=== PATIENT | male | born 1980 | race Caucasian/White ===

== ENCOUNTER 2021-01-02 15:17 | Emergency (ER) | payer BC, SELFPAY ==
[2021-01-02 15:45] VITALS: BP 127/87; PULSE 78; RESP 18; TEMP 36.4; O2SAT 98
--- NOTE | 2021-01-02 16:04 | ED.EAR ---
HPI - Ear Problem General Chief complaint: Ear Stated complaint: Bilateral ear pain Source: patient and RN notes reviewed Limitations: no limitations History of Present Illness HPI Narrative: The unvaccinated patient, is here with his sick family members , also presents with ear discomfort. Patient states he has mostly right ear discomfort associate with occasional nasal discharge. No fever, discharge, swelling, sore throat, earache, referred toothache pain, bruxism/teeth grinding, neuralgic pain, swelling/lymphadenopathy. Symptoms are mild to minimal and only slightly worse with palpation Related Data Home Medications Medication Instructions Recorded Confirmed atorvastatin 20 mg PO DAILY 01/02/21 01/02/21 metoprolol succinate 200 mg PO DAILY 01/02/21 01/02/21 omeprazole 20 mg PO DAILY 01/02/21 01/02/21 Allergies Allergy/AdvReac Type Severity Reaction Status Date / Time No Known Allergies Allergy Verified 01/02/21 15:24 Review of Systems Review of Systems: General/Constitutional: No weight loss,fever Eyes: N0: Redness,discharge Ears/Nose/Throat: No: Epistaxis,ear discharge Respiratory: Denies: Hemoptysis Skin: No Lumps, eruption Neurologic: No Focal Weakness,Sz Hematologic: Denies: Petechiae/Purpura PMFSH Social History Social History Gender identity (if verbalized by the patient): Male Comments At time of signature, agree with nursing past medical, surgical, social and family history. There is no relevant family history pertinent to the presenting complaint Exam Narrative: General Appearance: Well appearing, normal conjunctiva, EOMI Ears: Bilateral TMs normal, only slightly flushed/erythematous right auditory canal Nose: Normal nose, Nares clear Mouth/Throat: Normal appearing, Normal lips,supple, No adenopathy Respiratory: Airway patent, No respiratory distress Skin: Warm, Dry Neurological: A&O x3, Normal affect Course Vital Signs Vital signs: Vital Signs Temperature 97.5 F L 01/02/21 15:45 Pulse Rate 78 01/02/21 15:45 Respiratory Rate 18 01/02/21 15:45 Blood Pressure 127/87 01/02/21 15:45 Pulse Oximetry 98 01/02/21 15:45 Temperature 97.5 F L 01/02/21 15:45 Pulse Rate 78 01/02/21 15:45 Respiratory Rate 18 01/02/21 15:45 Blood Pressure 127/87 01/02/21 15:45 Pulse Oximetry 98 01/02/21 15:45 Medical Decision Making Vital Signs Vital Signs: Vital Signs Temperature 97.5 F L 01/02/21 15:45 Pulse Rate 78 01/02/21 15:45 Respiratory Rate 18 01/02/21 15:45 Blood Pressure 127/87 01/02/21 15:45 Pulse Oximetry 98 01/02/21 15:45 Temperature 97.5 F L 01/02/21 15:45 Pulse Rate 78 01/02/21 15:45 Respiratory Rate 18 01/02/21 15:45 Blood Pressure 127/87 01/02/21 15:45 Pulse Oximetry 98 01/02/21 15:45 Discharge Plan Discharge Clinical Impression: Ear ache Patient Disposition: Home, Self-Care Condition: Stable Instructions: [facility] (ED) Prescriptions: New pwoldgkl-[id number]-ZW 3.5-10,000-1 mg/mL-unit/mL-% solution 4 drop RIGHT EAR Q8H Qty: 10 RF: 0 No Action atorvastatin 20 mg tablet 20 mg PO DAILY RF: 0 metoprolol succinate 200 mg tablet extended release 24 hr 200 mg PO DAILY RF: 0 omeprazole 20 mg Capsule,Delayed Release(Dr/Ec) 20 mg PO DAILY RF: 0 Follow-up/Referrals: PHYSICIAN,POCKET STITCHER [Primary Care Provider] -
== END 2021-01-02 16:18 | disposition home or self-care (01) ==
PROVIDERS: Emergency Provider Emergency Medicine
DX: H92.09 Otalgia, unspecified ear (principal)
CPT/HCPCS: 99213; G0463

== ENCOUNTER 2021-02-27 10:08 | Emergency (ER) | payer BC, SELFPAY ==
--- NOTE | ~2021-02-27 | XR_ITS ---
EXAMINATION: XR chest 2V DATE: 02/27/2021 10:57 INDICATION: Fever TECHNIQUE: PA and lateral views of the chest are obtained. COMPARISON: None available FINDINGS: The lungs are free of acute opacities. There is no pleural effusion or pneumothorax. The ca rdiomediastinal silhouette is normal. There is mild thoracic spondylosis. IMPRESSION: 1. No acute cardiopulmonary abnormality. Reviewed, dictated and finalized at location A.
--- NOTE | 2021-02-27 10:19 | ED.URI ---
HPI - URI/Sore Throat General Chief Complaint: Upper Respiratory Infection Stated Complaint: Muscle weakness/fatigue/sharif/fever Time Seen by Provider: 02/27/21 10:20 Source: patient Mode of arrival: ambulatory Limitations: no limitations History of Present Illness HPI Narrative: Tanner Solis is a 40 yo male with a PMH of high cholesterol, PVCs, GERD, comes to [facility] with 5 to 6 days of being ill with fever and upper respiratory symptoms. He states for the last week he has been running a temp particularly at night to get as high as 102.5 and during the day he runs a low-grade temperature. He has been taking aspirin for his fever and NyQuil with acetaminophen Has not had Covid vaccine told nurse it was because of reaction he had [facility] told [facility] not to take the Covid vaccine Related Data Home Medications Medication Instructions Recorded Confirmed atorvastatin 20 mg PO DAILY 01/02/21 02/27/21 metoprolol succinate 200 mg PO DAILY 01/02/21 02/27/21 omeprazole 20 mg PO DAILY 01/02/21 02/27/21 Allergies Allergy/AdvReac Type Severity Reaction Status Date / Time No Known Allergies Allergy Verified 02/27/21 10:12 Review of Systems Review of Systems: CONSTITUTIONAL: Has fever-particularly at night, chills, sweats. EYES: Denies visual changes, redness, discharge. ENT: Denies rhinorrhea, congestion, sore throat, otalgia. CARDIOVASCULAR: Denies chest pain, palpitations, edema. RESPIRATORY: Denies dyspnea, wheezing, cough. GASTROINTESTINAL: Denies abdominal pain, nausea, vomiting, diarrhea. GENITOURINARY: Denies dysuria, hematuria, abnormal discharge SKIN: Denies rash or itching. NEUROLOGIC: Denies numbness, or focal weakness. PSYCHIATRIC: Denies anxiety or depression. myalgias PMFSH Past Medical History Medical History GERD (gastroesophageal reflux disease) High cholesterol PVC (premature ventricular contraction) Social History Social History (Updated 02/27/21 @ 11:03 by Rebecca Santos CNP) Smoking status: Never smoker Alcohol intake: current Gender identity (if verbalized by the patient): Male Comments At time of signature, I agree with nursing past medical, surgical, social and family history. There is no relevant family history pertinent to the presenting complaint. Exam Narrative: GENERAL: This is a well-nourished, well-developed patient, in mild distress. HEAD: normocephalic, atraumatic. EYES: Sclera clear/white. Vision is grossly intact. EARS: External ears normal, auditory canals clear on left with on right has fluid behind TM and without drainage, . Hearing grossly intact. NOSE: External nose normal without nasal discharge, nares without redness, no rhinorrhea. THROAT: Mucous membranes moist, posterior pharynx erythema with clear nasal drainage NECK: Neck supple, non-tender CARDIOVASCULAR: Regular rate and rhythm without murmurs, gallops, or rubs. RESPIRATORY: Clear to auscultation. Breath sounds equal bilaterally. No wheezes, rales, or rhonchi. GASTROINTESTINAL: Abdomen soft, SKIN: warm, intact with no suspicious lesions or rash, good texture and turgor. NEURO: awake, alert, and oriented to person, place and time. There were no obvious focal neurologic abnormalities. Steady gait EXTREMITIES: Normal range of motion. BACK: Nontender without deformity Course Course Emergency Course: Patient comes for 6 is 8 days of fever and generally complaints of myalgia denies any cough has high fever at night Covid negative flu test negative chest x-ray done-no acute cardiopulmonary abnormality Started on steroids, Zyrtec, Zithromax-discussed fever control with patient Vital Signs Vital signs: Vital Signs Temperature 98.6 F 02/27/21 10:21 Pulse Rate 100 02/27/21 10:21 Respiratory Rate 18 02/27/21 10:21 Blood Pressure 128/79 02/27/21 10:21 Pulse Oximetry 99 02/27/21 10:21 [place]
[2021-02-27 10:21] VITALS: BP 128/79; PULSE 100; RESP 18; TEMP 37; O2SAT 99
== END 2021-02-27 11:54 | disposition home or self-care (01) ==
PROVIDERS: Emergency Provider Nurse Practitioner
DX: J01.00 Acute maxillary sinusitis, unspecified (principal); H93.8X1 Other specified disorders of right ear; Z20.822 Contact with and (suspected) exposure to COVID-19; K21.9 Gastro-esophageal reflux disease without esophagitis; E78.00 Pure hypercholesterolemia, unspecified
CPT/HCPCS: 71046; 87426; 87804; 99213; C9803; G0463

== ENCOUNTER 2021-06-01 16:38 | Emergency (ER) | payer BC, SELFPAY ==
--- NOTE | 2021-06-01 16:59 | ED.URI ---
HPI - URI/Sore Throat General Chief Complaint: Upper Respiratory Infection Stated Complaint: Sinus,Cough Time Seen by Provider: 06/01/21 16:59 Source: patient and RN notes reviewed History of Present Illness HPI Narrative: Patient is a 40-year-old male who presents the urgent care with complaints of persistent post Covid cough and intermittent sinus congestion. Patient states that he feels like he has to constantly clear his throat . Patient has been using Mucinex. Patient had a prescription for steroids from our facility in the past and states that they made him shaky so he has not taken them . Patient was diagnosed with Covid on 20 May. States that his symptoms are very mild and only lasted a day or so. Denies of any recent fevers, shortness of breath or chest pain. No other acute complaints. No acute distress noted. Patient aware of the plan of care. Some parts of this dictation were generated by voice recognition software and may contain typographical and/or grammatical inaccuracies. Related Data Home Medications Medication Instructions Recorded Confirmed No Home Medications 06/01/21 06/01/21 Allergies Allergy/AdvReac Type Severity Reaction Status Date / Time No Known Allergies Allergy Verified 06/01/21 17:20 Review of Systems Review of Systems: CONSTITUTIONAL: Denies fever, chills, or sweats. EYES: Denies visual changes, redness, or discharge. ENT: Reports of consistent clearing of the throat and sinus congestion CARDIOVASCULAR: Denies chest pain, palpitations, or edema. RESPIRATORY: Reports of cough without dyspnea GASTROINTESTINAL: Denies abdominal pain, nausea, vomiting, or diarrhea. GENITOURINARY: Denies dysuria or hematuria. SKIN: Reports of a rash to the hands MUSCULOSKELETAL: Denies back pain, joint pain, or myalgia. NEUROLOGIC: Denies headache, numbness, or weakness. All other systems reviewed are negative, except as documented in HPI. [facility] Past Medical History Medical History GERD (gastroesophageal reflux disease) High cholesterol PVC (premature ventricular contraction) Social History Social History (Updated 02/27/21 @ 11:03 by Rebecca Santos CNP) Smoking status: Never smoker Alcohol intake: current Gender identity (if verbalized by the patient): Male Comments At the time of my signature, I reviewed and agree with the nursing past medical, surgical, social, and family history. There is no relevant family history pertinent to the patient complaint. Exam Narrative: GENERAL: This is a well-nourished, well-developed patient, in no apparent distress. HEAD: normocephalic, atraumatic. EYES: PERRL. Sclera clear/white. Vision is grossly intact. EARS: External ears normal, auditory canals clear and without drainage, TMs normal without perforation. Hearing grossly intact. NOSE: External nose normal with no obvious nasal discharge, nares without redness, no rhinorrhea. THROAT: Mucous membranes moist, posterior pharynx clear. Moderate postnasal drainage NECK: Neck supple CARDIOVASCULAR: Regular rate and rhythm without murmurs, gallops, or rubs. RESPIRATORY: Clear to auscultation. Breath sounds equal bilaterally. No wheezes, rales, or rhonchi. SKIN: Dry scaly papular dermatitis to the dorsal aspect of the right hand in the thenar eminence of the left hand. Warm, intact with no suspicious lesions or rash, good texture and turgor. NEURO: awake, alert, and oriented to person, place and time. There were no obvious focal neurologic abnormalities. EXTREMITIES: No clubbing, cyanosis, or edema. Course Course Level of Care: Express Care Visit Vital Signs Vital signs: Vital Signs Temperature 97.9 F 06/01/21 17:01 Pulse Rate 61 06/01/21 17:01 Respiratory Rate 20 06/01/21 17:01 Blood Pressure 115/80 06/01/21 17:01 Pulse Oximetry 100 06/01/21 17:01 Temperature 97.9 F 06/01/21 17:01 Pulse Rate 61 06/01/21 17:01 Respiratory
[2021-06-01 17:01] VITALS: BP 115/80; PULSE 61; RESP 20; TEMP 36.6; O2SAT 100
== END 2021-06-01 17:45 | disposition home or self-care (01) ==
PROVIDERS: Emergency Provider Nurse Practitioner Family; PCP Internal Medicine
DX: R05.9 Cough, unspecified (principal); U09.9 Post COVID-19 condition, unspecified; K21.9 Gastro-esophageal reflux disease without esophagitis; E78.00 Pure hypercholesterolemia, unspecified
CPT/HCPCS: 99211; G0463

== ENCOUNTER 2022-05-04 15:20 | Emergency (ER) | payer BC, SELFPAY ==
[2022-05-04 15:39] VITALS: BP 137/68; PULSE 75; RESP 18; TEMP 36.8; O2SAT 99
--- NOTE | 2022-05-04 16:18 | ED.URI ---
HPI - URI/Sore Throat General Chief Complaint: Upper Respiratory Infection Stated Complaint: nasal drainage,sorethroat Time Seen by Provider: 05/04/22 16:15 Source: patient, RN notes reviewed and old records reviewed Mode of arrival: ambulatory Limitations: no limitations History of Present Illness HPI Narrative: 41-year-old male who presents to [facility] with complaints of 11 days of sinus congestion, nasal discharge, headache,sore throat, tonsils soreness and ears are itchy. Patient states that he has nasal drainage which started as clear that is now green and yellow. He reports that he has cough which is starting to be productive also. He states that congestion feels like it is moving to his chest. Patient has not had COVID vaccinations or flu shot he had reaction to some immunization when he was younger and his doctor recommended he not get these shots. He states that he did home COVID test 04/30/2022 that was negative.He reports no fever and has taken some OTC Sudafed, Mucinex, and Tylenol. MD elicited complaint: cough, sore throat, rhinorrhea and nasal congestion Onset (ago): day(s) (11) Treatments prior to arrival: acetaminophen and other (sudafed, Mucinex) Related Data Home Medications Medication Instructions Recorded Confirmed atorvastatin 20 mg tablet 20 mg PO DAILY 05/04/22 05/04/22 metoprolol tartrate 25 mg tablet 25 mg PO DAILY 05/04/22 05/04/22 omeprazole 20 mg capsule,delayed 20 mg PO DAILY 05/04/22 05/04/22 release Allergies Allergy/AdvReac Type Severity Reaction Status Date / Time No Known Allergies Allergy Verified 05/04/22 15:36 Review of Systems Review of Systems: CONSTITUTIONAL: Denies malaise, chills, sweats, or fever, reports fatigue EYES: Denies visual changes, redness, or discharge. ENT: Reports rhinorrhea, congestion, sinus pain, otalgia and sore throat. CARDIOVASCULAR: Denies chest pain, palpitations, or edema. RESPIRATORY: Reports cough.? Denies dyspnea. GASTROINTESTINAL: Denies abdominal pain, nausea, vomiting, diarrhea SKIN: Denies rash or itching. MUSCULOSKELETAL: Denies myalgia. NEUROLOGIC: Reports headache. All systems reviewed & are unremarkable except as noted in HPI and below PMFSH Past Medical History Medical History (Updated 05/05/22 @ 07:56 by Coretta Mosquera NP) COVID-19 05/20/2021 GERD (gastroesophageal reflux disease) High cholesterol Hypertension PVC (premature ventricular contraction) Social History Social History (Updated 05/05/22 @ 07:58 by Coretta Mosquera NP) Smoking status: Never smoker Alcohol intake: current Substance use type: does not use Gender identity (if verbalized by the patient): Male Comments At time of signature, agree with nursing past medical, surgical, social and family history. There is no relevant family history pertinent to the presenting complaint Exam Narrative: GENERAL: Well-appearing, well-nourished, and in no acute distress. HEAD: Normocephalic EYES: PERRLA, conjunctivae clear ENT: Nares clear, turbinates edematous and erythematous, yellow discharge. Mucous membranes moist.Left TM red and bulging, right ear TM pearly puri with dull light reflex, no tragal tenderness. Oropharynx erythematous without lesions. Tonsils not enlarged and without exudate, no drooling, no hoarseness, no trismus, uvula midline. NECK: Supple. No lymphadenopathy CHEST: Clear to auscultation, breath sounds equal. No wheezing, rhonchi, rales, or stridor. No respiratory distress, speaks in full sentences.cough, SAO2 99% on room air HEART: Regular rate and rhythm. No murmur heard. SKIN: Warm, dry, no rash. NEURO: Alert and oriented x3. PSYCH: Normal mood and affect Course Course Emergency Course: Patient is aware of diagnosis, understands and agrees to treatment plan.? Anticipatory guidance given.? Patient agrees to follow-up as directed and is aware of reasons to seek care at the emergency department. Portion
== END 2022-05-04 16:42 | disposition home or self-care (01) ==
PROVIDERS: Emergency Provider Registered Nurse
DX: H66.92 Otitis media, unspecified, left ear (principal); J06.9 Acute upper respiratory infection, unspecified; R05.9 Cough, unspecified; K21.9 Gastro-esophageal reflux disease without esophagitis; I10 Essential (primary) hypertension; E78.00 Pure hypercholesterolemia, unspecified
CPT/HCPCS: 87081; 87880; 99213; G0463

== ENCOUNTER 2022-08-26 16:10 | Emergency (ER) | payer BC, SELFPAY ==
[2022-08-26 16:15] VITALS: BP 135/83; PULSE 61; RESP 18; TEMP 36.2; O2SAT 99
--- NOTE | 2022-08-26 16:40 | ED.URI ---
HPI - URI/Sore Throat General Chief Complaint: Upper Respiratory Infection Stated Complaint: Cough,Wheezing,Sore Throat,Congestion Time Seen by Provider: 08/26/22 16:29 Source: patient and RN notes reviewed Mode of arrival: ambulatory Limitations: no limitations History of Present Illness HPI Narrative: Patient presents today with a 2 week history of productive cough, scratchy throat, right ear pressure with nasal congestion and postnasal drip over the last several days. Denies shortness of breath, fever. He has been taking Mucinex and NyQuil with some relief. Reports history of childhood asthma, but none currently. He took a COVID test yesterday with this was negative. Related Data Home Medications Medication Instructions Recorded Confirmed atorvastatin 20 mg tablet 20 mg PO DAILY 05/04/22 08/26/22 metoprolol tartrate 25 mg tablet 25 mg PO DAILY 05/04/22 08/26/22 omeprazole 20 mg capsule,delayed 20 mg PO DAILY 05/04/22 08/26/22 release Allergies Allergy/AdvReac Type Severity Reaction Status Date / Time smallpox AdvReac Severe Other Verified 08/26/22 16:31 vaccine,chick-embryo,live Review of Systems Review of Systems: CONSTITUTIONAL: Denies body aches, fever, chills, or sweats. EYES: Denies visual changes, redness, or discharge. ENT: Denies rhinorrhea. + congestion, scratchy throat, right ear pain, postnasal drip CARDIOVASCULAR: Denies chest pain, palpitations, or edema. RESPIRATORY: Denies dyspnea.+ cough GASTROINTESTINAL: Denies abdominal pain, nausea, vomiting, or diarrhea. GENITOURINARY: Denies dysuria or hematuria. SKIN: Denies rash, itching, or wounds. MUSCULOSKELETAL: Denies back pain, joint pain, or myalgia. NEUROLOGIC: Denies headache, numbness, tingling, or weakness. PSYCH: Denies depression or anxiety. [facility] Past Medical History Medical History COVID-19 05/20/2021 GERD (gastroesophageal reflux disease) High cholesterol Hypertension PVC (premature ventricular contraction) Social History Social History Smoking status: Never smoker Alcohol intake: current Substance use type: does not use Gender identity (if verbalized by the patient): Male Comments At time of signature, I have reviewed and agree with nursing past medical, surgical, social and family history unless otherwise noted. Please see nursing chart for further information. There is no relevant family history pertinent to the presenting complaint Exam Narrative: GENERAL: Well-appearing, well-nourished, and in no acute distress. HEAD: Normocephalic, atraumatic. EYES: EOMI. No redness or drainage. Conjunctivae normal. ENT: Mucous membranes pink and moist. Nares congested. No rhinorrhea. No frontal and maxillary sinus tenderness. Left TM normal. Right TM with air-fluid line with no evidence of bacterial infection.. Throat normal. Uvula midline. NECK: Normal AROM. Supple. No lymphadenopathy. CHEST: No respiratory distress. Clear to auscultation. HEART: Regular rate and rhythm. No murmur appreciated. Normal peripheral pulses. EXTREMITIES: Normal range of motion. No edema. SKIN: Warm, dry, no rash. Capillary refill normal. Normal skin turgor. NEURO: No focal deficits. Alert and oriented x3. Gait steady. PSYCH: Normal affect. No signs of depression or anxiety. Course Course Level of Care: Express Care Visit Vital Signs Vital signs: Vital Signs Temperature 97.2 F L 08/26/22 16:15 Pulse Rate 61 08/26/22 16:15 Respiratory Rate 18 08/26/22 16:15 Blood Pressure 135/83 08/26/22 16:15 Pulse Oximetry 99 08/26/22 16:15 Oxygen Delivery Room Air 08/26/22 16:15 Temperature 97.2 F L 08/26/22 16:15 Pulse Rate 61 08/26/22 16:15 Respiratory Rate 18 08/26/22 16:15 Blood Pressure 135/83 08/26/22 16:15 Pulse Oximetry 99 08/26/22 16:15 Oxygen Delivery Room Air 08/26/22
== END 2022-08-26 16:46 | disposition home or self-care (01) ==
PROVIDERS: Emergency Provider Nurse Practitioner
DX: J01.90 Acute sinusitis, unspecified (principal); J40 Bronchitis, not specified as acute or chronic; K21.9 Gastro-esophageal reflux disease without esophagitis; E78.00 Pure hypercholesterolemia, unspecified; I10 Essential (primary) hypertension; Z86.16 Personal history of COVID-19
CPT/HCPCS: 99213; G0463

== ENCOUNTER 2023-06-17 10:10 | Emergency (ER) | payer BC, SELFPAY ==
[2023-06-17 10:51] VITALS: BP 122/72; PULSE 69; RESP 16; TEMP 36.5; O2SAT 100
--- NOTE | 2023-06-17 11:17 | ED.SKABFB ---
HPI - Skin/Abscess/Foreign Bdy General Chief complaint: Skin/Abscess/Foreign Body Stated complaint: nose pain and swelling Time Seen by Provider: 06/17/23 11:09 Source: patient and RN notes reviewed Mode of arrival: ambulatory Limitations: no limitations History of Present Illness HPI narrative: Patient presents today with a 5 day history of pain the left side of his nose with some mild swelling. Denies pain at rest, but this pain is present when he touches the area. Also states that he develops clear rhinorrhea and postnasal drip when he touches the area. States this swelling has been progressively getting worse since onset. He denies any other URI symptoms or fever. He has tried no [id number] treatment prior to arrival. Related Data Home Medications Medication Instructions Recorded Confirmed atorvastatin 20 mg tablet 80 mg PO DAILY 05/04/22 06/17/23 omeprazole 20 mg capsule,delayed 20 mg PO DAILY 05/04/22 06/17/23 release Allergies Allergy/AdvReac Type Severity Reaction Status Date / Time smallpox Allergy Severe Other Verified 06/17/23 10:52 vaccine,chick-embryo,live Review of Systems Review of Systems: CONSTITUTIONAL: Denies body aches, fever, chills, or sweats. EYES: Denies visual changes, redness, or discharge. ENT: Denies congestion, sore throat, or otalgia.+ left nose pain, rhinorrhea, postnasal drip CARDIOVASCULAR: Denies chest pain, palpitations, or edema. RESPIRATORY: Denies cough or dyspnea. GASTROINTESTINAL: Denies abdominal pain, nausea, vomiting, or diarrhea. GENITOURINARY: Denies dysuria or hematuria. SKIN: Denies rash, itching, or wounds. MUSCULOSKELETAL: Denies back pain, joint pain, or myalgia. NEUROLOGIC: Denies headache, numbness, tingling, or weakness. PSYCH: Denies depression or anxiety. [facility] Past Medical History Medical History COVID-19 05/20/2021 GERD (gastroesophageal reflux disease) High cholesterol Hypertension PVC (premature ventricular contraction) Social History Social History Smoking status: Never smoker Alcohol intake: current Substance use type: does not use Gender identity (if verbalized by the patient): Male Comments At time of signature, I have reviewed and agree with nursing past medical, surgical, social and family history unless otherwise noted. Please see nursing chart for further information. There is no relevant family history pertinent to the presenting complaint Exam Narrative: GENERAL: Well-appearing, well-nourished, and in no acute distress. HEAD: Normocephalic, atraumatic. EYES: EOMI. No redness or drainage. Conjunctivae normal. ENT: Mucous membranes pink and moist. Nares clear. Bilateral nasal turbinates are normal without drainage. TMs normal bilaterally. Throat normal. Uvula midline. Left nose, just inferior to the nasal bridge is slightly edematous without erythema. It is tender to palpation. NECK: Normal AROM. CHEST: No respiratory distress. MUSCULOSKELETAL: No bony tenderness. EXTREMITIES: Normal range of motion. No edema. SKIN: Warm, dry, no rash. Capillary refill normal. Normal skin turgor. NEURO: No focal deficits. Alert and oriented x3. Gait steady. PSYCH: Normal affect. No signs of depression or anxiety. Course Course Level of Care: Express Care Visit Vital Signs Vital signs: Vital Signs Temperature 97.7 F 06/17/23 10:51 Pulse Rate 69 06/17/23 10:51 Respiratory Rate 16 06/17/23 10:51 Blood Pressure 122/72 06/17/23 10:51 Pulse Oximetry 100 06/17/23 10:51 Oxygen Delivery Room Air 06/17/23 10:51 Temperature 97.7 F 06/17/23 10:51 Pulse Rate 69 06/17/23 10:51 Respiratory Rate 16 06/17/23 10:51 Blood Pressure 122/72 06/17/23 10:51 Pulse Oximetry 100 06/17/23 10:51 Oxygen Delivery Room Air 06/17/23 10:51 Reviewed MDM - Skin
== END 2023-06-17 11:27 | disposition home or self-care (01) ==
PROVIDERS: Emergency Provider Nurse Practitioner
DX: L03.211 Cellulitis of face (principal); K21.9 Gastro-esophageal reflux disease without esophagitis; E78.00 Pure hypercholesterolemia, unspecified; I10 Essential (primary) hypertension; Z86.16 Personal history of COVID-19
CPT/HCPCS: 99213; G0463